=== PATIENT | male | born 1940 | race Caucasian/White ===

== ENCOUNTER 2016-07-05 17:39 | Emergency (ER) | payer SELFPAY ==
[2016-07-05 18:24] LABS: HEMOGLOBIN 15.2 gm/dl (14.0-17.5); RED BLOOD COUNT 4.92 M/UL (4.20-5.50)
[2016-07-05 18:49] LABS: BUN/CREATININE RATIO 23 (0-10)
== END 2016-07-05 19:20 | disposition home or self-care (01) ==
LOC: EDBD 17:39 → ER1 17:39
PROVIDERS: Family Medicine
DX: Z53.21 Procedure and treatment not carried out due to patient leaving prior to being seen by health care provider (principal)
CPT/HCPCS: 71010; 80053; 82550; 82553; 83874; 84484; 85025; 93005